=== PATIENT | male | born 1980 | race Caucasian/White ===

== ENCOUNTER 2023-09-05 17:36 | Emergency (ER) | payer OTHER ==
[~2023-09-05] VITALS: Ht 172.7 cm; Wt 81.7 kg
[~2023-09-05 17:36] MED LIST: AMOX500 PO; DIPATR PO; ERYT.5TO RIGHTEYE; HYDACE5 PO; Norco 5-325 Ta1 EACH PO; OXYACE5T PO; PENVK500 PO; PROM25 PO
[2023-09-05 18:39] LABS: BASOPHILS ABSOLUTE AUTO 0.04 K/mm3 (0.00-0.23); BASOPHILS PERCENT AUTO 1 % (0-2); EOSINOPHILS ABSOLUTE AUTO 0.14 K/mm3 (0.00-0.68); EOSINOPHILS PERCENT AUTO 3 % (0-6); Hematocrit 42.6 % (37.0-53.0); Hemoglobin 15.2 g/dL (13.5-17.5); IMMATURE GRAN ABSOLUTE AUTO 0.02 K/mm3 (0.00-0.10); IMMATURE GRAN PERCENT AUTO 0 % (0-1); LYMPHOCYTES ABSOLUTE AUTO 0.59 K/mm3 (0.84-5.20); LYMPHOCYTES PERCENT AUTO 11 % (21-46); MONOCYTES ABSOLUTE AUTO 1.27 K/mm3 (0.16-1.47); MONOCYTES PERCENT AUTO 23 % (4-13); Mean Corpuscular HGB 31.7 pg (26.0-34.0); Mean Corpuscular HGB Conc 35.7 g/dL (31.5-36.5); Mean Corpuscular Volume 89 fL (80-100); Mean Platelet Volume 10.2 fL (9.1-12.4); NEUTROPHILS PERCENT AUTO 62 % (41-73); Platelet Count 265 K/mm3 (150-400); RDW Coefficient Variation 12.4 % (11.7-14.2); RDW Standard Deviation 40.8 fL (35.1-46.3); White Blood Cell Count 5.46 K/mm3 (4.00-11.30)
[2023-09-05 18:48] LABS: Influenza A Negative (NEGATIVE); Influenza B Negative (NEGATIVE)
[2023-09-05 18:58] LABS: Albumin, Blood 3.8 g/dL (3.4-5.0); Bilirubin, Total 0.4 mg/dL (0.1-1.0); Bun/Creatinine Ratio 5.7 (12.0-20.0); Calcium, Blood 8.7 mg/dL (8.5-10.1); Creatinine, Blood 1.05 mg/dL (0.60-1.20); Globulin, Blood 3.7 g/dL (2.2-4.0); Potassium, Blood 3.5 mmol/L (3.5-5.5); Total Protein, Blood 7.5 g/dL (6.4-8.2)
[2023-09-05 19:38] LABS: SARS-Cov-2 (COVID-19) PCR, MMC POSITIVE (NEGATIVE)
[2023-09-05 20:16] LABS: Source, Urine Clean Catch
[2023-09-05 20:30] LABS: Appearance, Urine Clear (Clear); Bilirubin, Urine Neg (Neg); Blood, Urine Neg (Neg); Color, Urine Yellow (P-Yellow); Glucose Qualitative, Urine Neg (Neg); Ketones, Urine 1+ (Neg); Leukocyte Esterase, Urine Neg (Neg); Nitrite, Urine Neg (Neg); Protein, Urine 1+ (Neg); Urobilinogen, Urine 2+ (Normal)
[2023-09-05 21:34] VITALS: BP 100/60
[2023-09-05] MEDS ORDERED: Ibuprofen600 MG PO (22:16)
[2023-09-05] MEDS ORDERED: ACET500 PO (22:16)
== END 2023-09-05 22:41 | disposition home or self-care (01) ==
LOC: ER 17:36
PROVIDERS: Student in an Organized Health Care Education/Training Program
DX: U07.1 COVID-19 (principal); F17.210 Nicotine dependence, cigarettes, uncomplicated
CPT/HCPCS: 80053; 83690; 85025; 87804; 87807; 96361; 96374; 99284-25; A9270; J1885; J7030; U0002

== ENCOUNTER 2024-10-19 19:13 | Emergency (ER) | payer OTHER ==
[~2024-10-19] VITALS: Ht 170.2 cm; Wt 79.4 kg
[~2024-10-19 19:13] MED LIST changes: +ACET500 PO; +Ibuprofen600 MG PO
[2024-10-19 20:07] VITALS: BP 152/95
== END 2024-10-19 22:41 | disposition home or self-care (01) ==
LOC: ER 19:13
DX: S60.410A Abrasion of right index finger, initial encounter (principal); S60.416A Abrasion of right little finger, initial encounter; S60.412A Abrasion of right middle finger, initial encounter; S60.414A Abrasion of right ring finger, initial encounter; S60.311A Abrasion of right thumb, initial encounter; R60.0 Localized edema; F17.200 Nicotine dependence, unspecified, uncomplicated; W22.01XA Walked into wall, initial encounter
CPT/HCPCS: 73130; 99283-25